=== PATIENT | female | born 1960 | race Caucasian/White ===

== ENCOUNTER → 2018-05-26 | Outpatient (CLI) | payer BC ==
--- NOTE | 2018-05-26 16:39 | MR ---
EXAMINATION TYPE: MR knee RT wo con DATE OF EXAM: 05/26/2018 COMPARISON: None HISTORY: Right knee pain TECHNIQUE: Multiplanar, multisequence imaging of the right knee is performed without IV contrast. FINDINGS: MEDIAL MENISCUS: There is a radial tear of the free edge of the posterior horn of the medial meniscus . LATERAL MENISCUS: Anterior and posterior horns are intact without tear. There is slight increased sig nal of the posterior horn of the lateral meniscus particularly as it extends into the posterior root suggestive of myxoid degeneration CRUCIATE LIGAMENTS: The anterior and posterior cruciate ligaments are intact and unremarkable. COLLATERAL LIGAMENTS: The medial collateral ligament and lateral collateral ligament complex are inta ct and unremarkable. EXTENSOR MECHANISM: Visualized quadriceps and patellar tendons are intact. EFFUSION: No significant suprapatellar joint effusion. POPLITEAL CYST: No popliteal/webb cyst. CARTILAGE: There is a focal full-thickness cartilaginous defect of the medial patellar facet measurin g 7 mm with corresponding fissure of the trochlea at its medial facet. There is a 6 mm partial-thickn ess defect of the weightbearing surface of the lateral femoral condyle with overall signal heterogene ity of the lateral femoral condylar cartilage. Mild signal heterogeneity is seen of the medial compar tment with no focal partial-thickness or full-thickness defect. BONE MARROW SIGNAL: No focal abnormal marrow signal is appreciated. OTHER: There is an encapsulated area of fat within the inferior margin of Hoffa's fat pad with surrou nding PD hyperintensity and T1 hypointensity indicating fluid. This could be related to prior trauma and encapsulated fat necrosis although etiology is uncertain. IMPRESSION: 1. Radial tear of the free edge of the posterior horn of the medial meniscus. 2. 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 3. Tricompartmental chondromalacia with 6 mm partial-thickness defect of the lateral femoral condyle and 7 mm full-thickness defect of the medial facet of the patella with corresponding medial facet fis sure of the trochlear cartilage. 4. Encapsulated area of fat within Hoffa's fat pad with surrounding fluid. Although etiology is uncer tain encapsulated fat necrosis is of primary diagnostic consideration.
== END | disposition home or self-care (01) ==
LOC: RADMRIMAIN 13:27
PROVIDERS: ATTEND Orthopaedic Surgery
DX: S83.241A Other tear of medial meniscus, current injury, right knee, initial encounter (principal); M22.41 Chondromalacia patellae, right knee

== ENCOUNTER → 2018-06-22 | Outpatient (CLI) | payer BC ==
[2018-06-22 12:02] LABS: Basophils % (A) 1 %; Eosinophils # (A) 0.1 k/uL (0-0.7); Eosinophils % (A) 2 %; HCT 45.4 % (34.0-46.0); HGB 15.1 gm/dL (11.4-16.0); Lymphocytes # (A) 1.9 k/uL (1.0-4.8); Lymphocytes % (A) 30 %; MCH 30.1 pg (25.0-35.0); MCHC 33.3 g/dL (31.0-37.0); MCV 90.4 fL (80.0-100.0); Mean Platelet Volume 6.4; Monocytes # (A) 0.4 k/uL (0-1.0); Monocytes % (A) 6 %; Neutrophils # (A) 3.7 k/uL (1.3-7.7); Neutrophils % (A) 59 %; Platelet Count 292 k/uL (150-450); RBC 5.02 m/uL (3.80-5.40); RDW 12.3 % (11.5-15.5); WBC 6.3 k/uL (3.8-10.6)
[2018-06-22 12:15] LABS: Potassium 5.3 mmol/L (3.5-5.1)
== END ==
LOC: LABPAT 10:50
PROVIDERS: ATTEND Orthopaedic Surgery
DX: Z01.818 Encounter for other preprocedural examination (principal); Z01.812 Encounter for preprocedural laboratory examination; M23.91 Unspecified internal derangement of right knee
CPT/HCPCS: 36415; 80051; 85025; 93005

== ENCOUNTER → 2018-07-29 | Outpatient (CLI) | payer BC ==
[2018-07-29 16:39] LABS: Basophils % (A) 0 %; Eosinophils # (A) 0.1 k/uL (0-0.7); Eosinophils % (A) 1 %; HCT 44.8 % (34.0-46.0); HGB 14.6 gm/dL (11.4-16.0); Lymphocytes # (A) 2.1 k/uL (1.0-4.8); Lymphocytes % (A) 21 %; MCH 30.3 pg (25.0-35.0); MCHC 32.6 g/dL (31.0-37.0); MCV 92.9 fL (80.0-100.0); Mean Platelet Volume 6.7; Monocytes # (A) 0.4 k/uL (0-1.0); Monocytes % (A) 4 %; Neutrophils % (A) 71 %; Platelet Count 281 k/uL (150-450); RBC 4.82 m/uL (3.80-5.40); RDW 12.4 % (11.5-15.5); WBC 9.9 k/uL (3.8-10.6)
[2018-07-29 17:06] LABS: Potassium 4.9 mmol/L (3.5-5.1)
== END ==
LOC: LABPAT 15:50
PROVIDERS: ATTEND Orthopaedic Surgery
DX: Z01.812 Encounter for preprocedural laboratory examination (principal); M23.91 Unspecified internal derangement of right knee
CPT/HCPCS: 36415; 80051; 85025

== ENCOUNTER 2018-08-04 13:01 | Day surgery (SDC) | payer BC ==
[2018-08-03 11:51] VITALS: BMI 23.0
--- NOTE | 2018-08-03 16:28 | HP ---
HISTORY AND PHYSICAL DATE OF SURGERY: 08/04/2018 Kim Abraham is a 57-year-old patient seen with progressive right knee pain. We discussed treatment options. She elected to proceed with arthroscopy. Consent obtained. PAST MEDICAL HISTORY: Depression. PAST SURGICAL HISTORY: 1. Cervical fusion. 2. Acoustic neuroma excision. DAILY MEDICATIONS: Estraderm. ALLERGIES: NONE. SOCIAL HISTORY: She denies current tobacco use. PHYSICAL EVALUATION OF THE RIGHT KNEE: Range of motion is 0 to 130 degrees. There is a mild effusion present. There is tenderness along the medial joint line, a positive medial Shon's. Crepitus, medial and patellofemoral compartments. Ligaments are stable. Hip rotation without pain. Distal neurovascular exam is intact. RADIOGRAPHS: Right knee radiographs revealed mild osteoarthritis. Right knee MRI revealed medial meniscal tear. IMPRESSION: Internal derangement of right knee with medial meniscal tear. PLAN: Right knee arthroscopy with partial meniscectomy and debridement. MMODL / IJN: [id number] /
[~2018-08-04 13:01] MED LIST: DEXAMETHASONE SOD PHOSPHATE 10 MG/ML 1 ML VIAL IV ONE; HYDROmorphone 0.5 MG/0.5 ML SYRINGE IVP PRN; LACTATED RINGERS 1,000 ML IV SCH; LIDOCAINE 1% 20 ML VIAL (10MG/ML) FOR IV START INTRADERMA PRN; MIDAZOLAM (PF) 2 MG/2 ML VIAL IV PRN; ONDANSETRON 4 MG/2 ML VIAL IVP ONE; SCOPOLAMINE 1.5MG/72HR PATCH TRANSDERM ONE; ceFAZolin 1,000 MG in DEXTROSE/WATER 1 50ML.BAG IVPB ONE
[2018-08-04 13:18] VITALS: TEMP 98.5
[2018-08-04] MEDS ORDERED: LIDOCAINE 1% INJ 10MG/ML (20 ML MDV) ONE (15:19)
[2018-08-04] MEDS ORDERED: MIDAZOLAM 2 MG/2 ML VIAL ONE (15:19)
[2018-08-04] MEDS ORDERED: fentaNYL (PF) 50 MCG/ML 2 ML AMP ONE (15:19)
[2018-08-04] MEDS ORDERED: KETOROLAC 30 MG/ML 1 ML VIAL ONE (15:19)
[2018-08-04] MEDS ORDERED: PROPOFOL 10 MG/ML 20 ML VIAL IV ONE (15:19)
[2018-08-04] MEDS ORDERED: BUPIVACAIN-EPI 0.25%-1:200,000 30 ML VIAL INTRAARTIC ONE (15:49)
--- NOTE | 2018-08-04 16:08 | P.OP ---
Date of Procedure: 08/04/18 Preoperative Diagnosis: Internal derangement right knee Postoperative Diagnosis: 1. Tear medial meniscus right knee 2. Grade 3 chondromalacia medial femoral condyle right knee 3. Reactive synovitis medial, lateral and suprapatellar compartments right knee Procedure(s) Performed: 1. Arthroscopic partial medial meniscectomy right knee 2. Arthroscopic chondroplasty medial femoral condyle right knee 3. Arthroscopic partial synovectomy medial, lateral and suprapatellar compartments right knee Anesthesia: GETA, local Surgeon: Mina Casey Estimated Blood Loss (ml): 3 Pathology: none sent Condition: stable Disposition: PACU Indications for Procedure: 57-year-old patient seen with progressive right knee pain. We discussed treatment options, she elected to proceed with arthroscopy. Operative Findings: See description of procedure Description of Procedure: Patient was taken to the operative suite. Patient underwent a general anesthetic by the department of anesthesia. Patient was given preoperative antibiotics. The right lower extremity was placed in a well-padded arthroscopic leg rios. The right leg was prepped and draped in the normal sterile orthopedic fashion. A lateral parapatellar and suprapatellar incision was made. Trochars were inserted. Arthroscopy was initiated. Suprapatellar pouch veal diffuse thick reactive synovitis. The patellofemoral joint appeared grossly. There grade 1 chondromalacia with no osteochondral tears present. The scope was guided into the medial gutter. No loose bodies or plica were identified. The scope was then guided into the medial compartment. A medial parapatellar incision was made. Trocar inserted followed by probe. There was a radial tear posterior horn medial meniscus. Her grade 3 chondromalacia changes of the medial femoral condyle with diffuse osteochondral tears present. There was reactive synovitis anteriorly. I performed a partial medial meniscectomy down to stable tissue. I performed a chondroplasty of the medial femoral condyle down to stable tissue. I performed a partial synovectomy decompressing the reactive synovitis. The residual meniscus was stable. The residual osteochondral surface was stable. There was good decompression synovitis. Scope and probe were then guided into the intercondylar notch. Cruciates were identified, probed and found to be stable. The scope and probe were then guided into lateral compartment. Lateral meniscus was probed and found to be stable. There was no significant chondromalacia present. There was some reactive synovitis anteriorly. I performed a partial synovectomy decompressing synovitis. The scope was in guided back into the suprapatellar compartment. I introduced a motorized shaver into the super patellar compartment. I performed a partial synovectomy decompressing reactive synovitis. The shaver was removed. There appeared be no residual debris. Instruments were now removed from the joint. The joint was infiltrated with .25 % Marcaine. Steri-Strips were applied to the portal sites. Sterile dressings were applied. The patient was placed into a [facility] hose. No tourniquet was utilized. The patient was awakened, transferred to a bed and taken to recovery stable satisfactory condition.
[2018-08-04] MEDS ORDERED: traMADol 50 MG TAB PO ONE (17:21)
[2018-08-04 17:38] VITALS: BP 135/79; PULSE 83; RESP 18
== END 2018-08-04 18:00 | disposition home or self-care (01) ==
LOC: OR 13:01
PROVIDERS: ATTEND Orthopaedic Surgery
DX: S83.241A Other tear of medial meniscus, current injury, right knee, initial encounter (principal); X58.XXXA Exposure to other specified factors, initial encounter; M94.261 Chondromalacia, right knee; M65.861 Other synovitis and tenosynovitis, right lower leg; M17.11 Unilateral primary osteoarthritis, right knee; F32.9 Major depressive disorder, single episode, unspecified; Z79.890 Hormone replacement therapy; Z98.1 Arthrodesis status
CPT/HCPCS: 29881; J2250; J1100; J2405; J2001; J3010; J1885; J0690; J2704; J1170

== ENCOUNTER 2020-07-19 23:02 | Observation (INO) | payer BC ==
[2020-07-19] MEDS ORDERED: SODIUM CHLORIDE 0.9% 1,000 ML IV STA (23:34)
[2020-07-19] MEDS ORDERED: LABETALOL 5 MG/ML VIAL MDV IVP STA (23:35)
--- NOTE | 2020-07-19 23:45 | ED ---
Arrhythmia/Palpitations HPI - General Chief Complaint: Arrhythmia/Palpitations Stated Complaint: Palpitations, high bp Time Seen by Provider: 07/19/20 23:15 Source: patient, RN notes reviewed, old records reviewed Mode of arrival: wheelchair Limitations: no limitations - History of Present Illness Initial Comments: This is a 59-year-old female presented for evaluation, patient presents for recurrent right ration of elevated blood pressure, elevated heart rate. Patient has had symptoms for about 10 months now. Up to 10 months they have been episodic. Last month she has been thoroughly evaluated by her primary care doctor still has 2 days ago had an inpatient visits [facility]. Patient presents for increased heart rate dizziness recurrent today. Increased blood pressure and anxiety MD Complaint: rapid heart beat, "heart racing", palpitations -: month(s) Context: occurred during rest, occurred during exertion Arrhythmia History: SVT Associated Symptoms: shortness of breath, anxiety, cough, feeling of impending doom - Related Data Previous Rx's Medication Instructions Recorded traMADol HCl [Ultram] 50 mg PO Q6H PRN #21 tab 08/04/18 Allergies Allergy/AdvReac Type Severity Reaction Status Date / Time morphine Allergy Unknown Verified 07/19/20 23:10 acetaminophen [From Vicodin] AdvReac Hallucinati Verified 07/19/20 23:09 ons hydrocodone bitartrate AdvReac Hallucinati Verified 07/19/20 23:09 [From Vicodin] ons Review of Systems ROS Statement: Those systems with pertinent positive or pertinent negative responses have been documented in the HPI. ROS Other: All systems not noted in ROS Statement are negative. Past Medical History Past Medical History: Osteoarthritis (OA) Additional Past Medical History / Comment(s): Has trouble with balance. History of Any Multi-Drug Resistant Organisms: None Reported Past Surgical History: Back Surgery, Hysterectomy, Joint Replacement Additional Past Surgical History / Comment(s): Cervical fusion in 1999, Brain (Acoustic Neuroma) in 2009, eye surgery as a child. Past Anesthesia/Blood Transfusion Reactions: Postoperative Nausea & Vomiting (PONV) Past Psychological History: No Psychological Hx Reported Smoking Status: Former smoker Past Alcohol Use History: Occasional Past Drug Use History: None Reported - Past Family History Mother Family Medical History: Unable to Obtain Additional Family Medical History / Comment(s): adopted. General Exam Limitations: no limitations General appearance: alert, in no apparent distress, anxious Head exam: Present: atraumatic, normocephalic, normal inspection Eye exam: Present: normal appearance, PERRL, EOMI. Absent: scleral icterus, conjunctival injection, periorbital swelling ENT exam: Present: normal exam, mucous membranes moist Neck exam: Present: normal inspection. Absent: tenderness, meningismus, lymphadenopathy Respiratory exam: Present: wheezes. Absent: respiratory distress, rales, rhonchi, stridor Cardiovascular Exam: Present: normal rhythm, tachycardia, normal heart sounds. Absent: systolic murmur, diastolic murmur, rubs, gallop, clicks GI/Abdominal exam: Present: soft, normal bowel sounds. Absent: distended, tenderness, guarding, rebound, rigid Extremities exam: Present: normal inspection, full ROM, normal capillary refill. Absent: tenderness, pedal edema, joint swelling, calf tenderness Back exam: Present: normal inspection Neurological exam: Present: alert, oriented X3, CN II-XII intact Psychiatric exam: Present: normal affect, normal mood Skin exam: Present: warm, dry, intact, normal color. Absent: rash Course Vital Signs 07/19/20 07/19/20 07/20/20 23:05 23:40 00:03 Temperature 98.4 F Pulse Rate 129 H 97 Pulse Rate [ 122 H Pulse Oximetery ] Respiratory 20 Rate Blood Pressure 183/81 146/80 O2 Sat by Pulse 97 98 Oximetry 07/20/20 07/20/20 00:33 01:00 Temperature Pulse Rate 97 90 Pulse Rate [ Pulse Oximetery ] Respiratory 16 Rate Blood Pressure 138/81 124/84 O2 Sat by Pulse Oximetry - Reevaluation(s) Reevaluation #1: 07/20/20 02:08 Medical record is reviewed Reevaluation #2: 07/20/20 02:08 Patient does have improvement with medication here in the ER, blood pressure control Reevaluation #3: 07/20/20 02:09 Patient has no current chest pain - Consultations Consultation #1: Spoke with PMH were agreeable with the patient EKG Findings - EKG Comments: EKG Findings:: EKG shows sinus tachycardia rate 120 GA 154 QRS 76 QTc 477 Medical Decision Making - Medical Decision Making 59 female DF for evaluation patient is increased anxiety palpitations which are present here in the ER. Patient had recent CT of chest which was negative but has persistent symptoms or shortness of breath despite steroids and antibiotics symptoms are progressively worsened. Patient will be admitted for cardiology to evaluate - Lab Data Result diagrams: 07/19/20 23:42 07/19/20 23:42 Lab Results 07/19/20 07/19/20 07/19/20 Range/Units 23:42 23:42 23:42 WBC 16.2 H (3.8-10.6) k/uL RBC 5.18 (3.80-5.40) m/uL Hgb 15.4 (11.4-16.0) gm/dL Hct 47.6 H (34.0-46.0) % MCV 91.8 (80.0-100.0) fL MCH 29.7 (25.0-35.0) pg MCHC 32.3 (31.0-37.0) g/dL RDW 12.7 (11.5-15.5) % Plt Count 314 (150-450) k/uL MPV 7.0 Neutrophils % 92 % Lymphocytes % 5 % Monocytes % 2 % Eosinophils % 0 % Basophils % 0 % Neutrophils # 14.9 H (1.3-7.7) k/uL Lymphocytes # 0.8 L (1.0-4.8) k/uL Monocytes # 0.4 (0-1.0) k/uL Eosinophils # 0.0 (0-0.7) k/uL Basophils # 0.0 (0-0.2) k/uL PT 9.7 (9.0-12.0) sec INR 0.9 (<1.2) APTT 21.5 L (22.0-30.0) sec D-Dimer (<0.60) mg/L FEU Sodium (137-145) mmol/L Potassium (3.5-5.1) mmol/L Chloride (98-107) mmol/L Carbon Dioxide (22-30) mmol/L Anion Gap mmol/L BUN (7-17) mg/dL Creatinine (0.52-1.04) mg/dL Est GFR (CKD-EPI)AfAm (>60 ml/min/1.73 sqM) Est GFR (CKD-EPI)NonAf (>60 ml/min/1.73 sqM) Glucose (74-99) mg/dL Plasma Lactic Acid Uriel (0.7-2.0) mmol/L Calcium (8.4-10.2) mg/dL Phosphorus (2.5-4.5) mg/dL Magnesium (1.6-2.3) mg/dL Total Bilirubin (0.2-1.3) mg/dL AST (14-36) U/L ALT (4-34) U/L Alkaline Phosphatase (38-126) U/L Creatine Kinase (30-135) U/L Troponin I (0.000-0.034) ng/mL C-Reactive Protein (<10.0) mg/L NT-Pro-B Natriuret Pep pg/mL Total Protein (6.3-8.2) g/dL Albumin (3.5-5.0) g/dL TSH (0.465-4.680) mIU/L Urine Color Light Yellow Urine Appearance Clear (Clear) Urine pH 6.5 (5.0-8.0) Ur Specific [place] 1.009 (1.001-1.035) Urine Protein Negative (Negative) Urine Glucose (UA) Negative (Negative) Urine Ketones Negative (Negative) Urine Blood Negative (Negative) Urine Nitrite Negative (Negative) Urine Bilirubin Negative (Negative) Urine Urobilinogen <2.0 (<2.0) mg/dL Ur Leukocyte Esterase Negative (Negative) 07/19/20 07/19/20 07/19/20 Range/Units 23:42 23:42 23:42 WBC (3.8-10.6) k/uL RBC (3.80-5.40) m/uL Hgb (11.4-16.0) gm/dL Hct (34.0-46.0) % MCV (80.0-100.0) fL MCH (25.0-35.0) pg MCHC (31.0-37.0) g/dL RDW (11.5-15.5) % Plt Count (150-450) k/uL MPV Neutrophils % % Lymphocytes % % Monocytes % % Eosinophils % % Basophils % % Neutrophils # (1.3-7.7) k/uL Lymphocytes # (1.0-4.8) k/uL Monocytes # (0-1.0) k/uL Eosinophils # (0-0.7) k/uL Basophils # (0-0.2) k/uL PT (9.0-12.0) sec INR (<1.2) APTT (22.0-30.0) sec D-Dimer (<0.60) mg/L FEU Sodium 140 (137-145) mmol/L Potassium 4.1 (3.5-5.1) mmol/L Chloride 106 (98-107) mmol/L Carbon Dioxide 23 (22-30) mmol/L Anion Gap 11 mmol/L BUN 16 (7-17) mg/dL Creatinine 0.74 (0.52-1.04) mg/dL Est GFR (CKD-EPI)AfAm >90 (>60 ml/min/1.73 sqM) Est GFR (CKD-EPI)NonAf >90 (>60 ml/min/1.73 sqM) Glucose 141 H (74-99) mg/dL Plasma Lactic Acid Uriel 1.7 (0.7-2.0) mmol/L Calcium 9.6 (8.4-10.2) mg/dL Phosphorus 4.2 (2.5-4.5) mg/dL Magnesium 1.9 (1.6-2.3) mg/dL Total Bilirubin 0.5 (0.2-1.3) mg/dL AST 20 (14-36) U/L ALT 21 (4-34) U/L Alkaline Phosphatase 72 (38-126) U/L Creatine Kinase 41 (30-135) U/L Troponin I <0.012 (0.000-0.034) ng/mL C-Reactive Protein (<10.0) mg/L NT-Pro-B Natriuret Pep pg/mL Total Protein 7.9 (6.3-8.2) g/dL Albumin 4.8 (3.5-5.0) g/dL TSH (0.465-4.680) mIU/L Urine Color Urine Appearance (Clear) Urine pH (5.0-8.0) Ur Specific [place] (1.001-1.035) Urine Protein (Negative) Urine Glucose (UA) (Negative) Urine Ketones (Negative) Urine Blood (Negative) Urine Nitrite (Negative) Urine Bilirubin (Negative) Urine Urobilinogen (<2.0) mg/dL Ur Leukocyte Esterase (Negative) 07/19/20 07/19/20 07/19/20 Range/Units 23:42 23:42 23:42 WBC (3.8-10.6) k/uL RBC (3.80-5.40) m/uL Hgb (11.4-16.0) gm/dL Hct (34.0-46.0) % MCV (80.0-100.0) fL MCH (25.0-35.0) pg MCHC (31.0-37.0) g/dL RDW (11.5-15.5) % Plt Count (150-450) k/uL MPV Neutrophils % % Lymphocytes % % Monocytes % % Eosinophils % % Basophils % % Neutrophils # (1.3-7.7) k/uL Lymphocytes # (1.0-4.8) k/uL Monocytes # (0-1.0) k/uL Eosinophils # (0-0.7) k/uL Basophils # (0-0.2) k/uL PT (9.0-12.0) sec INR (<1.2) APTT (22.0-30.0) sec D-Dimer 0.24 (<0.60) mg/L FEU Sodium (137-145) mmol/L Potassium (3.5-5.1) mmol/L Chloride (98-107) mmol/L Carbon Dioxide (22-30) mmol/L Anion Gap mmol/L BUN (7-17) mg/dL Creatinine (0.52-1.04) mg/dL Est GFR (CKD-EPI)AfAm (>60 ml/min/1.73 sqM) Est GFR (CKD-EPI)NonAf (>60 ml/min/1.73 sqM) Glucose (74-99) mg/dL Plasma Lactic Acid Uriel (0.7-2.0) mmol/L Calcium (8.4-10.2) mg/dL Phosphorus (2.5-4.5) mg/dL Magnesium (1.6-2.3) mg/dL Total Bilirubin (0.2-1.3) mg/dL AST (14-36) U/L ALT (4-34) U/L Alkaline Phosphatase (38-126) U/L Creatine Kinase (30-135) U/L Troponin I (0.000-0.034) ng/mL C-Reactive Protein <5.0 (<10.0) mg/L NT-Pro-B Natriuret Pep 104 pg/mL Total Protein (6.3-8.2) g/dL Albumin (3.5-5.0) g/dL TSH 0.250 L (0.465-4.680) mIU/L Urine Color Urine Appearance (Clear) Urine pH (5.0-8.0) Ur Specific [place] (1.001-1.035) Urine Protein (Negative) Urine Glucose (UA) (Negative) Urine Ketones (Negative) Urine Blood (Negative) Urine Nitrite (Negative) Urine Bilirubin (Negative) Urine Urobilinogen (<2.0) mg/dL Ur Leukocyte Esterase (Negative) Disposition Clinical Impression: Tachycardia, Palpitations Disposition: ADMITTED IP TO THIS HOSP Condition: Good Is patient prescribed a controlled substance at d/c from ED?: No
[2020-07-20 00:04] LABS: Basophils % (A) 0 %; Eosinophils % (A) 0 %; HCT 47.6 % (34.0-46.0); HGB 15.4 gm/dL (11.4-16.0); Lymphocytes # (A) 0.8 k/uL (1.0-4.8); Lymphocytes % (A) 5 %; MCH 29.7 pg (25.0-35.0); MCHC 32.3 g/dL (31.0-37.0); MCV 91.8 fL (80.0-100.0); Monocytes # (A) 0.4 k/uL (0-1.0); Monocytes % (A) 2 %; Neutrophils # (A) 14.9 k/uL (1.3-7.7); Neutrophils % (A) 92 %; Platelet Count 314 k/uL (150-450); RBC 5.18 m/uL (3.80-5.40); RDW 12.7 % (11.5-15.5); WBC 16.2 k/uL (3.8-10.6)
[2020-07-20 00:12] LABS: Appearance,Urine Clear (Clear); Bilirubin,Urine Negative (Negative); Blood,Urine Negative (Negative); Color,Urine Light Yellow; Glucose,Urine (UA) Negative (Negative); Ketones,Urine Negative (Negative); Leukocyte Esterase,Urine Negative (Negative); Nitrite,Urine Negative (Negative); PH, Urine 6.5 (5.0-8.0); Protein,Urine Negative (Negative); Specific Gravity,Urine 1.009 (1.001-1.035); Urobilinogen,Urine <2.0 mg/dL (<2.0)
[2020-07-20 00:15] LABS: ALT 21 U/L (4-34); AST 20 U/L (14-36); African American GFR (CKD) >90 (>60 ml/min/1.73 sqM); Albumin 4.8 g/dL (3.5-5.0); Alkaline Phosphatase 72 U/L (38-126); Anion Gap 11 mmol/L; Blood Urea Nitrogen 16 mg/dL (7-17); Calcium 9.6 mg/dL (8.4-10.2); Carbon Dioxide 23 mmol/L (22-30); Chloride 106 mmol/L (98-107); Creatine Kinase 41 U/L (30-135); Glucose 141 mg/dL (74-99); INR 0.9 (<1.2); Magnesium 1.9 mg/dL (1.6-2.3); Non-African American GFR(CKD) >90 (>60 ml/min/1.73 sqM); Phosphorus 4.2 mg/dL (2.5-4.5); Potassium 4.1 mmol/L (3.5-5.1); Prothrombin Time 9.7 sec (9.0-12.0); Sodium 140 mmol/L (137-145); Total Bilirubin 0.5 mg/dL (0.2-1.3); Total Protein 7.9 g/dL (6.3-8.2)
[2020-07-20 00:18] LABS: C Reactive Protein <5.0 mg/L (<10.0)
[2020-07-20 00:20] LABS: Partial Thromboplastin Time 21.5 sec (22.0-30.0)
[2020-07-20] MEDS ORDERED: NITROGLYCERIN SL TABS 0.4 MG TAB SUBLINGUAL PRN (01:55)
[2020-07-20] MEDS: SODIUM CHLORIDE 0.9% 1,000 ML IV SCH ×3 (02:26→21:25)
[2020-07-20 02:50] LABS: T4, Free (Free Thyroxine) 1.24 ng/dL (0.78-2.19)
--- NOTE | 2020-07-20 08:35 | XR ---
EXAMINATION TYPE: XR chest 2V DATE OF EXAM: 07/20/2020 COMPARISON: NONE TECHNIQUE: PA and lateral views submitted. HISTORY: Cough FINDINGS: The lungs are clear and there is no pneumothorax, pleural effusion, or focal pneumonia. Heart size normal. No overt failure. Biapical pleural thickening. IMPRESSION: 1. No acute process.
--- NOTE | 2020-07-20 09:41 | P.CRDCN ---
History of Present Illness Consult date: 07/20/20 History of present illness: CHIEF COMPLAINT: Elevated blood pressure and heart rate HISTORY OF PRESENT ILLNESS: This is a 59-year-old female with a past medical history significant for asthma and bronchitis. Patient does not follow with a throw out clerk. We have been asked to see the patient in consultation for elevated blood pressure and tachycardia. Patient states she has had a cough since August 2019. She states it has gotten worse over the past month. She states she has been evaluated by her primary care physician and has been on antibiotics. She is currently prescribed steroids by her PCP. She states that she went to [facility] on Wednesday secondary to her cough. A chest x-ray was completed at that time. She states she was discharged home. Patient reports feeling palpitations for the last 3 days. She continues to report a nonproductive cough. She denies chest pain or pressure. Denies dizziness or numbness. She states she has been checking her blood pressure at home and it has been elevated. Blood pressure this morning is 164/94. Heart rate is in 80s. DIAGNOSTICS: EKG reveals sinus tachycardia with no signs of acute ischemia Laboratory data: WBC 16.2. Hemoglobin 15.4. Platelet count 314. D-dimer 0.24. Sodium 140. Potassium 4.1. BUN 16. Creatinine 0.74. Lactic acid 1.7. Troponin negative 3. TSH 0.250. Free T4 1 0.24. Current home cardiac medications include none REVIEW OF SYSTEMS: At the time of my exam: CONSTITUTIONAL: Denies fever or chills. HEENT: Denies blurred vision, vision changes, or eye pain. Denies hemoptysis CARDIOVASCULAR: Denies chest pain, orthopnea, PND or palpitations RESPIRATORY: No shortness of breath. GASTROINTESTINAL: Denies abdominal pain. Denies nausea or vomiting. HEMATOLOGIC: Denies bleeding disorders. GENITOURINARY: Denies any blood in urine. SKIN: Denies pruitis. Denies rash. PHYSICAL EXAM: VITAL SIGNS: Reviewed. GENERAL: Well-developed in no acute distress. HEENT: Head is normocephalic. Pupils are equal, round. Sclerae anicteric. Mucous membranes of the mouth are moist. Neck supple. No JVD or thyromegaly LUNGS: Respirations even and unlabored. Lungs essentially clear to auscultation bilaterally. HEART: Regular rate and rhythm. S1 and S2 heard. ABDOMEN: Soft. Nondistended. Nontender. EXTREMITIES: Normal range of motion. No clubbing or cyanosis. Peripheral pulses intact. No lower extremity edema NEUROLOGIC: Awake and alert. Oriented x 3. ASSESSMENT: Chronic cough, since August 2019 Palpitations Sinus tachycardia History of asthma and bronchitis Leukocytosis, suspect steroid-induced PLAN: Continue telemetry monitoring Obtain 2-D echo to assess cardiac structure and function Continue to monitor blood pressure. Patient encouraged to keep a log of her blood pressures at home post discharge Patient may be discharged home this afternoon pending echo results Nurse practitioner note has been reviewed by physician. Signing provider agrees with the documented findings, assessment, and plan of care. Past Medical History Past Medical History: Osteoarthritis (OA) Additional Past Medical History / Comment(s): Has trouble with balance from inner ear issues, macular degenerative disease, legally blind in left eye, OA, L rotator cuff, cervical fusion &7, benigh brain tumor 2009, hysterectomy History of Any Multi-Drug Resistant Organisms: None Reported Past Surgical History: Back Surgery, Hysterectomy, Joint Replacement Additional Past Surgical History / Comment(s): Cervical fusion in 1999, Brain (Acoustic Neuroma) in 2009, eye surgery as a child. Past Anesthesia/Blood Transfusion Reactions: Postoperative Nausea & Vomiting (PONV) Past Psychological History: No Psychological Hx Reported Smoking Status: Former smoker Past Alcohol Use History: Occasional Additional Past Alcohol Use History / Comment(s): Smoked 1 PPD for 10 yrs. Quit in 1991. Past Drug Use History: None Reported - Past Family History Mother Family Medical History: Unable to Obtain Additional Family Medical History / Comment(s): adopted. Medications and Allergies Home Medications Medication Instructions Recorded Confirmed Type Albuterol Sulfate [Albuterol 2 puff PO Q6H PRN 07/20/20 07/20/20 History Sulfate Hfa] Fluticasone/Salmeterol [Advair 1 puff INHALATION RT-BID 07/20/20 07/20/20 History 250-50 Diskus] predniSONE [Deltasone] See Taper PO DIRECTED 07/20/20 07/20/20 History Allergies Allergy/AdvReac Type Severity Reaction Status Date / Time morphine Allergy Unknown Verified 07/20/20 09:05 acetaminophen [From Vicodin] AdvReac Hallucinati Verified 07/20/20 09:05 ons hydrocodone bitartrate AdvReac Hallucinati Verified 07/20/20 09:05 [From Vicodin] ons Physical Exam Vitals: Vital Signs Temp Pulse Pulse Resp BP BP Pulse Ox 07/20/20 08:26 97.5 F L 78 20 164/94 07/20/20 03:00 16 07/20/20 02:38 98.0 F 84 16 150/86 98 07/20/20 02:24 87 16 145/88 100 07/20/20 01:00 90 16 124/84 07/20/20 00:33 97 138/81 07/20/20 00:03 97 146/80 98 07/19/20 23:40 122 H 07/19/20 23:05 98.4 F 129 H 20 183/81 97 Intake and Output 07/19/20 07/20/20 07/20/20 22:59 06:59 14:59 Other: Weight 72.575 kg Results 07/19/20 23:42 07/19/20 23:42 Cardiac Enzymes 07/19/20 07/19/20 07/20/20 Range/Units 23:42 23:42 02:30 AST 20 (14-36) U/L Troponin I <0.012 <0.012 (0.000-0.034) ng/mL 07/20/20 Range/Units 05:33 AST (14-36) U/L Troponin I <0.012 (0.000-0.034) ng/mL Coagulation 07/19/20 Range/Units 23:42 PT 9.7 (9.0-12.0) sec APTT 21.5 L (22.0-30.0) sec CBC 07/19/20 Range/Units 23:42 WBC 16.2 H (3.8-10.6) k/uL RBC 5.18 (3.80-5.40) m/uL Hgb 15.4 (11.4-16.0) gm/dL Hct 47.6 H (34.0-46.0) % Plt Count 314 (150-450) k/uL Comprehensive Metabolic Panel 07/19/20 Range/Units 23:42 Sodium 140 (137-145) mmol/L Potassium 4.1 (3.5-5.1) mmol/L Chloride 106 (98-107) mmol/L Carbon Dioxide 23 (22-30) mmol/L BUN 16 (7-17) mg/dL Creatinine 0.74 (0.52-1.04) mg/dL Glucose 141 H (74-99) mg/dL Calcium 9.6 (8.4-10.2) mg/dL AST 20 (14-36) U/L ALT 21 (4-34) U/L Alkaline Phosphatase 72 (38-126) U/L Total Protein 7.9 (6.3-8.2) g/dL Albumin 4.8 (3.5-5.0) g/dL Current Medications Generic Name Dose Route Start Last Admin Trade Name Freq PRN Reason Stop Dose Admin Sodium Chloride 1,000 mls @ 100 mls/hr 07/20/20 02:00 07/20/20 02:26 Saline 0.9% IV Not Given .Q10H JENNA Nitroglycerin 0.4 mg 07/20/20 01:55 Nitroglycerin Sl Tabs 0.4 Mg Tab SUBLINGUAL Q5M PRN Chest Pain Intake and Output 07/19/20 07/20/20 07/20/20 22:59 06:59 14:59 Other: Weight 72.575 kg 07/19/20 23:42 07/19/20 23:42
[2020-07-20] MEDS: LORATADINE-PSEUDOEPH 5-120 MG 1 EACH TAB.ER.12H PO SCH ×2 (11:27→21:26)
[2020-07-20] MEDS: predniSONE 10 MG TAB PO SCH (11:27)
--- NOTE | 2020-07-20 11:44 | P.HPIM ---
History of Present Illness H&P Date: 07/20/20 Chief Complaint: Increased heart rate and increased blood pressure Ms. Abraham is a 59-year-old female with a past medical history of osteoarthritis, macular degeneration, legally blind in the left eye, cervical fusion of 6 and 7, benign brain tumor in 2009 coming to the hospital stating that she was having increased heart rate and also that her blood pressure was high. Patient states that for the past 10 months she has been having issues with her breathing. She states that when she takes in a deep breath, she has to cough. She has nonproductive cough. Patient quit smoking 26 years back. She is being evaluated for this by her primary care physician and currently taking steroids. Patient states that she went to [facility] on Wednesday secondary to this cough, she had a chest x-ray and she was discharged home. But since then she has been having palpitations and a nonproductive cough. Patient mentions that she has been checking her blood pressure at home and that it was high and she also recorded her heart rate and was high so she came in for further evaluation. In the ER patient had an EKG showing sinus tachycardia, and a chest x-ray s howing no acute process. Patient had blood work done showing white count of 16.2, hemoglobin 15.4, platelets 314. D-dimer 0.04. Electrolytes showing sodium 140, potassium 4.1, chloride 106, bicarbonate 23, BUN 16, creatinine 0.74. Troponin less than 0.0123. Free T4 1 0.24. UA negative for nitrites and esterase. Review of Systems REVIEW OF SYSTEMS: CONSTITUTIONAL: No fever, no malaise, no fatigue. HEENT: No recent visual problems or hearing problems. Denied any sore throat. CARDIOVASCULAR: As per HPI PULMONARY:no hemoptysis. GASTROINTESTINAL: No abdominal pain, nausea vomiting or diarrhea. NEUROLOGICAL: No headaches, no weakness, no numbness. HEMATOLOGICAL: Denies any bleeding or petechiae. GENITOURINARY: Denies any burning micturition, frequency, or urgency. MUSCULOSKELETAL/RHEUMATOLOGICAL: No joint pain, swelling or deformities. ENDOCRINE: Denies any polyuria or polydipsia. The rest of the 14-point review of systems is negative. Past Medical History Past Medical History: Osteoarthritis (OA) Additional Past Medical History / Comment(s): Has trouble with balance from inner ear issues, macular degenerative disease, legally blind in left eye, OA, L rotator cuff, cervical fusion 6&7, benigh brain tumor 2010, hysterectomy History of Any Multi-Drug Resistant Organisms: None Reported Past Surgical History: Back Surgery, Hysterectomy, Joint Replacement Additional Past Surgical History / Comment(s): Cervical fusion in 1999, Brain (Acoustic Neuroma) in 2009, eye surgery as a child. Past Anesthesia/Blood Transfusion Reactions: Postoperative Nausea & Vomiting (PONV) Past Psychological History: No Psychological Hx Reported Smoking Status: Former smoker Past Alcohol Use History: Occasional Additional Past Alcohol Use History / Comment(s): Smoked 1 PPD for 10 yrs. Quit in 1991. Past Drug Use History: None Reported - Past Family History Mother Family Medical History: Unable to Obtain Additional Family Medical History / Comment(s): adopted. Medications and Allergies Home Medications Medication Instructions Recorded Confirmed Type Albuterol Sulfate [Albuterol 2 puff PO Q6H PRN 07/20/20 07/20/20 History Sulfate Hfa] Fluticasone/Salmeterol [Advair 1 puff INHALATION RT-BID 07/20/20 07/20/20 History 250-50 Diskus] predniSONE [Deltasone] See Taper PO DIRECTED 07/20/20 07/20/20 History Allergies Allergy/AdvReac Type Severity Reaction Status Date / Time morphine Allergy Unknown Verified 07/20/20 09:05 acetaminophen [From Vicodin] AdvReac Hallucinati Verified 07/20/20 09:05 ons hydrocodone bitartrate AdvReac Hallucinati Verified 07/20/20 09:05 [From Vicodin] ons Physical Exam Vitals: Vital Signs Temp Pulse Pulse Resp BP BP Pulse Ox 07/20/20 09:00 78 20 07/20/20 08:26 97.5 F L 78 20 164/94 07/20/20 03:00 16 07/20/20 02:38 98.0 F 84 16 150/86 98 07/20/20 02:24 87 16 145/88 100 07/20/20 01:00 90 16 124/84 07/20/20 00:33 97 138/81 07/20/20 00:03 97 146/80 98 07/19/20 23:40 122 H 07/19/20 23:05 98.4 F 129 H 20 183/81 97 Intake and Output 07/19/20 07/20/20 07/20/20 22:59 06:59 14:59 Other: Voiding Method Toilet Weight 72.575 kg PHYSICAL EXAMINATION: GENERAL: The patient is alert and oriented X3, in any acute distress. Well developed, well nourished. HEENT: Pupils are round and equally reacting to light. EOMI. No scleral icterus. No conjunctival pallor. Normocephalic, atraumatic. No pharyngeal erythema. No thyromegaly. Right conjunctival hemorrhage( status post injection by ophthalmology done couple of days back ) CARDIOVASCULAR: S1 and S2 present. No murmurs, rubs, or gallops. PULMONARY: Chest is clear to auscultation, no wheezing or crackles. ABDOMEN: Soft, nontender. No organomegaly. Normal bowel sounds. MUSCULOSKELETAL: No joint swelling or deformity. EXTREMITIES: No cyanosis, clubbing, or pedal edema. NEUROLOGICAL: No focal neurological deficits on gross exam. SKIN: No rash Results CBC & Chem 7: 07/19/20 23:42 07/19/20 23:42 Labs: Abnormal Lab Results - Last 24 Hours (Table) 07/19/20 07/19/20 07/19/20 Range/Units 23:42 23:42 23:42 WBC 16.2 H (3.8-10.6) k/uL Hct 47.6 H (34.0-46.0) % Neutrophils # 14.9 H (1.3-7.7) k/uL Lymphocytes # 0.8 L (1.0-4.8) k/uL APTT 21.5 L (22.0-30.0) sec Glucose 141 H (74-99) mg/dL TSH (0.465-4.680) mIU/L 07/19/20 Range/Units 23:42 WBC (3.8-10.6) k/uL Hct (34.0-46.0) % Neutrophils # (1.3-7.7) k/uL Lymphocytes # (1.0-4.8) k/uL APTT (22.0-30.0) sec Glucose (74-99) mg/dL TSH 0.250 L (0.465-4.680) mIU/L Thrombosis Risk Factor Assmnt - Choose All That Apply Any of the Below Risk Factors Present?: No Assessment and Plan Assessment: ASSESSMENT Chronic cough Palpitations Leukocytosis- on steroids Macular degeneration Degenerative joint disease Cervical fusion of C6/C7 Benign brain tumor 2010 History of hysterectomy Former smoker PLAN: Patient had an EKG and chest x-ray that are within normal limits. Patient's vitals have been within normal limits since admission. Cardiology has evaluated the patient echocardiogram is currently pending. Pulmonary has been consulted. Patient has been restarted on her home medications. Further recommendations depending on the progress of the patient
--- NOTE | 2020-07-20 12:23 | ECHOF ---
Referral Reason:lv function MEASUREMENTS -------- HEIGHT: 167.6 cm WEIGHT: 72.6 kg BP: RVIDd: 2.5 cm (< 3.3) IVSd: 1.5 cm (0.6 - 1.1) LVIDd: 2.5 cm (3.9 - 5.3) LVPWd: 1.5 cm (0.6 - 1.1) IVSs: 1.9 cm LVIDs: 1.7 cm LVPWs: 1.8 cm Ao Diam: 2.8 cm (2.0 - 3.7) AV Cusp: 1.6 cm (1.5 - 2.6) LA Diam: 2.9 cm (2.7 - 3.8) MV EXCURSION: 12.451 mm (> 18.000) MV EF SLOPE: 74 mm/s (70 - 150) EPSS: 0.5 cm MV E Ruben: 1.04 m/s MV DecT: 199 ms MV A Ruben: 1.04 m/s MV E/A Ratio: 0.99 RAP: 5.00 mmHg RVSP: 16.89 mmHg FINDINGS -------- Sinus rhythm. This was a technically good study. The left ventricular size is normal. There is moderate concentric left ventricular hypertrophy. O verall left ventricular systolic function is normal with, an EF between 55 - 60 %. The right ventricle is normal in size. The left atrial size is normal. The right atrial size is normal. The aortic valve is trileaflet, and appears structurally normal. No aortic stenosis or regurgitation. The mitral valve leaflets are mildly thickened. Mild mitral regurgitation is present. The tricuspid valve appears structurally normal. Mild tricuspid regurgitation present. Right vent ricular systolic pressure is normal at < 35 mmHg. Trace/mild (physiologic) pulmonic regurgitation. The aortic root size is normal. Normal inferior vena cava with normal inspiratory collapse consistent with estimated right atrial pre ssure of 5 mmHg. There is no pericardial effusion. CONCLUSIONS -------- 1. There is moderate concentric left ventricular hypertrophy. 2. Overall left ventricular systolic function is normal with, an EF between 55 - 60 %. 3. The aortic valve is trileaflet, and appears structurally normal. No aortic stenosis or regurgitati on. 4. The mitral valve leaflets are mildly thickened. 5. Mild mitral regurgitation is present. 6. Mild tricuspid regurgitation present. 7. Trace/mild (physiologic) pulmonic regurgitation. 8. There is no pericardial effusion. PEDICAB DRIVER: Roxana Interiano RDCS
--- NOTE | 2020-07-20 12:38 | P.CNPUL ---
History of Present Illness Consult date: 07/20/20 Reason for consult: cough, asthma Chief complaint: Chronic cough History of present illness: This is a 59-year-old female with history of multiple ALLERGIES, known history of hayfever, ALLERGIC rhinitis, known history of degenerative joint disease, remote smoking history, patient has been diagnosed in the past as having bronchial asthma, however has not been very compliant with her asthma medications including albuterol and Advair. Since August of 2019, the patient has been experiencing intermittent episodes of cough wheezing, shortness of breath. Cough is described as dry cough, nonproductive, denies any fever no chills no hemoptysis no chest pain. Patient had minimal smoking history and she quit smoking over 26 years ago. Has been treated by her primary care physician with multiple courses of inhalers, steroids, antibiotics, and nothing seems to help. Describes the cough as triggered by symptoms of ALLERGIC rhinitis, triggered by seasonal changes especially worse in fall and spring, triggered by her talking loud. And sometimes even triggered by inhalers. Patient denies any symptoms of GERD. She does have symptoms of ALLERGIC rhinitis for sure. At any rate patient was admitted, and I was asked to see her on consultation. She had sinus tachycardia when she was seen by cardiology, and he felt that her sinus tachycardia is related to her cough symptoms and asthma symptoms. Patient had a d-dimer of 0.04. Chest x-ray showed no evidence of active disease. Review of Systems CONSTITUTIONAL: Denies weight loss fever or chills. HEENT: No recent visual problems or hearing problems. Denied any sore throat. Patient does have chronic symptoms of ALLERGIC rhinitis. CARDIOVASCULAR: Palpitations. And tachycardia PULMONARY: As noted in HPI. GASTROINTESTINAL: Denies any GI symptoms, denies any symptoms of GERD. NEUROLOGICAL: No headaches, no weakness, no numbness. HEMATOLOGICAL: No clotting bleeding or bruising. GENITOURINARY: No dysuria frequency urgency or hematuria. MUSCULOSKELETAL/RHEUMATOLOGICAL: No joint pain, swelling or deformities. ENDOCRINE: Denies any heat or cold intolerance Past Medical History Past Medical History: Osteoarthritis (OA) Additional Past Medical History / Comment(s): Has trouble with balance from inner ear issues, macular degenerative disease, legally blind in left eye, OA, L rotator cuff, cervical fusion 6&7, benigh brain tumor 2009, hysterectomy History of Any Multi-Drug Resistant Organisms: None Reported Past Surgical History: Back Surgery, Hysterectomy, Joint Replacement Additional Past Surgical History / Comment(s): Cervical fusion in 1999, Brain (Acoustic Neuroma) in 2009, eye surgery as a child. Past Anesthesia/Blood Transfusion Reactions: Postoperative Nausea & Vomiting (PONV) Past Psychological History: No Psychological Hx Reported Smoking Status: Former smoker Past Alcohol Use History: Occasional Additional Past Alcohol Use History / Comment(s): Smoked 1 PPD for 10 yrs. Quit in 1991. Past Drug Use History: None Reported - Past Family History Mother Family Medical History: Unable to Obtain Additional Family Medical History / Comment(s): adopted. Medications and Allergies Home Medications Medication Instructions Recorded Confirmed Type Albuterol Sulfate [Albuterol 2 puff PO Q6H PRN 07/20/20 07/20/20 History Sulfate Hfa] Fluticasone/Salmeterol [Advair 1 puff INHALATION RT-BID 07/20/20 07/20/20 History 250-50 Diskus] predniSONE [Deltasone] See Taper PO DIRECTED 07/20/20 07/20/20 History Allergies Allergy/AdvReac Type Severity Reaction Status Date / Time morphine Allergy Unknown Verified 07/20/20 09:05 acetaminophen [From Vicodin] AdvReac Hallucinati Verified 07/20/20 09:05 ons hydrocodone bitartrate AdvReac Hallucinati Verified 07/20/20 09:05 [From Vicodin] ons Physical Exam Vitals: Vital Signs Temp Pulse Pulse Resp BP BP Pulse Ox 07/20/20 09:00 78 20 07/20/20 08:26 97.5 F L 78 20 164/94 07/20/20 03:00 16 07/20/20 02:38 98.0 F 84 16 150/86 98 07/20/20 02:24 87 16 145/88 100 07/20/20 01:00 90 16 124/84 07/20/20 00:33 97 138/81 07/20/20 00:03 97 146/80 98 07/19/20 23:40 122 H 07/19/20 23:05 98.4 F 129 H 20 183/81 97 Intake and Output 07/19/20 07/20/20 07/20/20 22:59 06:59 14:59 Other: Voiding Method Toilet Weight 72.575 kg Physical Exam: Revealed 59-year-old female in no distress. Head: Atraumatic, normocephalic. HEENT:[Neck is supple.] [No neck masses.] [No thyromegaly.] [No JVD.] Chest: [Clear throughout, no crackles, no rhonchi, minimal wheezing on forced expiratory maneuver only. Cardiac Exam: [Normal S1 and S2, no S3 gallop, no murmur.] Abdomen: [Soft, nontender, no megaly, no rebound, no guarding, normal bowel sounds.] Extremities: [No clubbing, no edema, no cyanosis.] Neurological Exam: [No focal neurologic deficit.] Alert and oriented 3. Psychiatric: Normal mood, affect and normal mental status examination. Skin: No rashes. Results - Laboratory Findings CBC and BMP: 07/19/20 23:42 07/19/20 23:42 PT/INR, D-dimer PT 9.7 sec (9.0-12.0) 07/19/20 23:42 INR 0.9 (<1.2) 07/19/20 23:42 D-Dimer 0.24 mg/L FEU (<0.60) 07/19/20 23:42 Abnormal lab findings: Abnormal Labs 07/19/20 07/19/20 07/19/20 23:42 23:42 23:42 WBC 16.2 H Hct 47.6 H Neutrophils # 14.9 H Lymphocytes # 0.8 L APTT 21.5 L Glucose 141 H TSH 07/19/20 23:42 WBC Hct Neutrophils # Lymphocytes # APTT Glucose TSH 0.250 L - Diagnostic Findings Chest x-ray: image reviewed (As noted in HPI.) Assessment and Plan Assessment: Impression: Chronic cough, suspect cough variant asthma and cough secondary to ALLERGIC rhinitis and postnasal drip. History of macular degeneration. History of multiple environmental ALLERGIES. History of benign brain tumor in 2010. History of hysterectomy. Former smoker. Recommendation: Suggest placing the patient on bronchodilators in the form of albuterol, Symbicort, Singulair, Claritin, and a course of prednisone 30 mg tapered over 21 days. Consider discharging the patient home today, assuming she is cleared by other consultants. And to see me in the office in 2 weeks. Time with Patient: Greater than 30
[2020-07-20 20:56] VITALS: RESP 16
[2020-07-20] MEDS ORDERED: MONTELUKAST 10 MG TAB PO SCH (21:00)
[2020-07-21 07:21] LABS: Basophils % (A) 0 %; Eosinophils # (A) 0.1 k/uL (0-0.7); Eosinophils % (A) 1 %; HCT 43.3 % (34.0-46.0); HGB 14.3 gm/dL (11.4-16.0); Lymphocytes # (A) 2.4 k/uL (1.0-4.8); Lymphocytes % (A) 24 %; MCH 30.2 pg (25.0-35.0); MCHC 32.9 g/dL (31.0-37.0); MCV 91.6 fL (80.0-100.0); Mean Platelet Volume 6.9; Monocytes # (A) 0.5 k/uL (0-1.0); Monocytes % (A) 5 %; Neutrophils # (A) 6.9 k/uL (1.3-7.7); Neutrophils % (A) 69 %; Platelet Count 286 k/uL (150-450); RBC 4.73 m/uL (3.80-5.40); RDW 12.6 % (11.5-15.5)
[2020-07-21 07:46] LABS: African American GFR (CKD) >90 (>60 ml/min/1.73 sqM); Anion Gap 3 mmol/L; Blood Urea Nitrogen 11 mg/dL (7-17); Calcium 8.8 mg/dL (8.4-10.2); Carbon Dioxide 27 mmol/L (22-30); Chloride 109 mmol/L (98-107); Cholesterol 191 mg/dL (<200); Glucose 82 mg/dL (74-99); HDL Cholesterol 72 mg/dL (40-60); LDL Cholesterol,Calculated 107 mg/dL (0-99); Non-African American GFR(CKD) >90 (>60 ml/min/1.73 sqM); Sodium 139 mmol/L (137-145); Triglycerides 60 mg/dL (<150)
[2020-07-21] MEDS: SODIUM CHLORIDE 0.9% 1,000 ML IV SCH (08:28)
[2020-07-21] MEDS: predniSONE 10 MG TAB PO SCH (08:29)
[2020-07-21] MEDS: LORATADINE-PSEUDOEPH 5-120 MG 1 EACH TAB.ER.12H PO SCH (08:29)
[2020-07-21] MEDS ORDERED: ACETAMINOPHEN TAB 325 MG TAB PO PRN (11:10)
[2020-07-21 15:03] VITALS: BP 116/68; PULSE 86; TEMP 98
--- NOTE | 2020-07-21 15:20 | P.DS ---
Providers Date of admission: 07/20/20 01:55 Expected date of discharge: 07/21/20 Attending physician: Rosemary Newberry Consults: 07/20/20 09:56 Consult Physician Routine Consulting Provider: Stevenson Snow Consult Reason/Comments: cough, SOB Do you want consulting provider notified?: Yes Primary care physician: [facility] Course: Ms. Abraham is a 59-year-old female with a past medical history of osteoarthritis, macular degeneration, legally blind in the left eye, cervical fusion of 6 and 7, benign brain tumor in 2009 coming to the hospital stating that she was having increased heart rate and also that her blood pressure was high. Patient states that for the past 10 months she has been having issues with her breathing. She states that when she takes in a deep breath, she has to cough. She has nonproductive cough. Patient quit smoking 26 years back. She is being evaluated for this by her primary care physician and currently taking steroids. Patient states that she went to [facility] on Wednesday secondary to this cough, she had a chest x-ray and she was discharged home. But since then she has been having palpitations and a nonproductive cough. Patient mentions that she has been checking her blood pressure at home and that it was high and she also recorded her heart rate and was high so she came in for further evaluation. In the ER patient had an EKG showing sinus tachycardia, and a chest x-ray showing no acute process. Patient had blood work done showing white count of 16.2, hemoglobin 15.4, platelets 314. D-dimer 0.04. Electrolytes showing sodium 140, potassium 4.1, chloride 106, bicarbonate 23, BUN 16, creatinine 0.74. Troponin less than 0.0123. Free T4 1 0.24. UA negative for nitrites and esterase. Hospital course: Patient was evaluated with echocardiogram done showing ejection fraction of 50-55%. She was evaluated by cardiology and pulmonary. Cardiology advised her to check her blood pressure and keep a log of that he drinks post discharge. Pulmonary suggested the patient be started on bronchodilators in the form of albuterol, Symbicort, Singulair, Claritin and to be discharged on tapering dose of prednisone. The treatment plan was discussed in detail with the patient and she says that she is ready for discharge and would follow up with them in 2 weeks. Vital Signs - 8 hr 01/10/21 01/10/21 09:00 14:52 Temperature 97.8 F 98.0 F Pulse Rate [ 78 86 Pulse Oximetery ] Respiratory 16 16 Rate Blood Pressure 117/67 116/68 [Right Arm] O2 Sat by Pulse 97 98 Oximetry PHYSICAL EXAMINATION: GENERAL: The patient is alert and oriented X3, in any acute distress. Well developed, well nourished. HEENT: Pupils are round and equally reacting to light. EOMI. No scleral icterus. No conjunctival pallor. Normocephalic, atraumatic. No pharyngeal erythema. No thyromegaly. Right conjunctival hemorrhage( status post injection by ophthalmology done couple of days back ) CARDIOVASCULAR: S1 and S2 present. No murmurs, rubs, or gallops. PULMONARY: Chest is clear to auscultation, no wheezing or crackles. ABDOMEN: Soft, nontender. No organomegaly. Normal bowel sounds. MUSCULOSKELETAL: No joint swelling or deformity. EXTREMITIES: No cyanosis, clubbing, or pedal edema. NEUROLOGICAL: No focal neurological deficits on gross exam. SKIN: No rash DISCHARGE DIAGNOSIS Chronic cough Palpitations Leukocytosis- on steroids Macular degeneration Degenerative joint disease Cervical fusion of C6/C7 Benign brain tumor 2010 History of hysterectomy Former smoker FOLLOW-up: Patient is advised to follow up with her primary care physician in 2- 3 days. She is advised to follow up with pulmonary in 2 weeks. Also discussed with her in detail about this tapering dose of prednisone. Her medications have been sent to her pharmacy. (35 minutes spent with the discharge of the patient) Patient Condition at Discharge: Good Plan - Discharge Summary Discharge Rx Participant: No New Discharge Prescriptions: New Loratadine-Pseudoeph 5-120 mg [Claritin-D 12 Hour] 1 each PO Q12HR 7 Days #14 tab.er.12h predniSONE See Taper PO DAILY 18 Days #63 tab Montelukast [Singulair] 10 mg PO HS 30 Days #30 tab Budesonide/Formoterol Fumarate [Symbicort 80-4.5 Mcg Inhaler] 1 puff INHALATION BID 30 Days #1 inhaler Albuterol Inhaler [Ventolin Hfa Inhaler] 1 puff INHALATION RT-QID PRN 30 Days #1 inhaler PRN Reason: Shortness Of Breath Continue Fluticasone/Salmeterol [Advair 250-50 Diskus] 1 puff INHALATION RT-BID Albuterol Sulfate [Albuterol Sulfate Hfa] 2 puff PO Q6H PRN PRN Reason: Shortness Of Breath Discontinued predniSONE [Deltasone] See Taper PO DIRECTED Discharge Medication List Albuterol Sulfate [Albuterol Sulfate Hfa] 2 puff PO Q6H PRN 07/20/20 [History] Fluticasone/Salmeterol [Advair 250-50 Diskus] 1 puff INHALATION RT-BID 07/20/20 [History] Albuterol Inhaler [Ventolin Hfa Inhaler] 1 puff INHALATION RT-QID PRN 30 Days #1 inhaler 07/21/20 [Rx] Budesonide/Formoterol Fumarate [Symbicort 80-4.5 Mcg Inhaler] 1 puff INHALATION BID 30 Days #1 inhaler 07/21/20 [Rx] Loratadine-Pseudoeph 5-120 mg [Claritin-D 12 Hour] 1 each PO Q12HR 7 Days #14 tab.er.12h 07/21/20 [Rx] Montelukast [Singulair] 10 mg PO HS 30 Days #30 tab 07/21/20 [Rx] predniSONE See Taper PO DAILY 18 Days #63 tab 07/21/20 [Rx] Follow up Appointment(s)/Referral(s): Stevenson Snow MD [STAFF PHYSICIAN] - 1 Week Nasima Smalls MD [STAFF PHYSICIAN] - 2 Weeks Angélica Sanchez MD [Primary Care Provider] - 1-2 days Discharge Disposition: HOME SELF-CARE
== END 2020-07-21 16:23 | disposition home or self-care (01) ==
LOC: SUPCPDRO 23:02 → EC 23:02 → 1SOBS 07-20 01:55
PROVIDERS: ADMIT Hospitalist; ATTEND Hospitalist
DX: R05 Cough (principal); R00.2 Palpitations; R06.02 Shortness of breath; J45.909 Unspecified asthma, uncomplicated; Z91.14 Patient's other noncompliance with medication regimen; D72.829 Elevated white blood cell count, unspecified; H35.30 Unspecified macular degeneration; M19.90 Unspecified osteoarthritis, unspecified site; I47.1 Supraventricular tachycardia; I10 Essential (primary) hypertension; F41.9 Anxiety disorder, unspecified; R26.9 Unspecified abnormalities of gait and mobility; H83.90 Unspecified disease of inner ear, unspecified ear; H54.62 Unqualified visual loss, left eye, normal vision right eye; Z88.5 Allergy status to narcotic agent; Z79.891 Long term (current) use of opiate analgesic; Z98.890 Other specified postprocedural states; Z90.710 Acquired absence of both cervix and uterus; Z96.60 Presence of unspecified orthopedic joint implant; Z98.1 Arthrodesis status; Z86.018 Personal history of other benign neoplasm; Z91.89 Other specified personal risk factors, not elsewhere classified; Z87.891 Personal history of nicotine dependence; Z87.09 Personal history of other diseases of the respiratory system
CPT/HCPCS: 93005 ×2; 96361 ×2; 96374; 99285; 36415; 93306; 85379; 84439; 83880; 80061; 80053; 80048; 84443; 82550; 83605; 83735; 84100; 84484 ×2; 85025 ×2; 85610; 85730; 86140; 81003; 71046; G0378 ×2; J7512 ×2

== ENCOUNTER → 2020-08-16 | Outpatient (CLI) | payer BC ==
[2020-08-16 16:15] LABS: Total Eosinophil Count 90 #EOS/uL (150-300)
[2020-08-16 22:51] LABS: Basophils # (A) 0.04 X 10*3/uL (0.00-0.10); Basophils % (A) 0.4 %; HCT 47.4 % (37.2-46.3); HGB 15.8 g/dL (12.0-15.0); Lymphocytes # (A) 1.68 X 10*3/uL (0.90-5.00); MCH 30.3 pg (27.0-32.0); MCHC 33.3 g/dL (32.0-37.0); MCV 90.8 fL (80.0-97.0); Mean Platelet Volume 9.7 fL (9.5-12.2); Monocytes # (A) 0.61 X 10*3/uL (0.20-1.00); Monocytes % (A) 5.8 %; Neutrophils # (A) 8.03 X 10*3/uL (1.80-7.70); Neutrophils % (A) 76.5 %; Platelet Count 370 X 10*3/uL (140-440); RBC 5.22 X 10*6/uL (4.10-5.20); RDW 11.9 % (11.5-14.5); WBC 10.49 X 10*3/uL (4.50-10.00)
[2020-08-17 01:40] LABS: Cockroach IgE 0.28 kU/L
[2020-08-17 01:41] LABS: Dog Dander IgE <0.10 kU/L
[2020-08-17 01:42] LABS: Cat Epith & Dander IgE <0.10 kU/L; Dermato. farinae IgE 0.42 kU/L
[2020-08-17 01:43] LABS: Birch IgE <0.10 kU/L; Elm IgE <0.10 kU/L; Oak IgE <0.10 kU/L; Ragweed,Common IgE <0.10 kU/L
[2020-08-17 01:44] LABS: Alternaria alternata IgE <0.10 kU/L; Aspergillus fumagatus IgE <0.10 kU/L; Maple (Box Elder) IgE <0.10 kU/L
[2020-08-17 01:45] LABS: Cladosporian herbarum IgE <0.10 kU/L
== END | disposition home or self-care (01) ==
LOC: LABWHC1 14:45
PROVIDERS: ATTEND Internal Medicine
DX: J45.909 Unspecified asthma, uncomplicated (principal); R05 Cough
CPT/HCPCS: 36415; 82785; 85008; 85025; 86003

== ENCOUNTER → 2020-08-27 | Outpatient (CLI) | payer BC ==
[2020-08-27 22:34] LABS: African American GFR (CKD) 72.4 (60.0-200.0); Albumin 5.2 g/dL (3.80-4.90); Albumin/Globulin Ratio 2.6 (1.60-3.17); Anion Gap 11.2 mmol/L (4.00-12.00); Carbon Dioxide 30.8 mmol/L (21.6-31.8); Non-African American GFR(CKD) 62.5 (60.0-200.0); Potassium 4.1 mmol/L (3.5-5.5); Total Bilirubin 0.9 mg/dL (0.2-1.2); Total Protein 7.2 g/dL (6.2-8.2)
== END | disposition home or self-care (01) ==
LOC: LABWHC1 15:09
PROVIDERS: ATTEND Internal Medicine Interventional Cardiology
DX: I10 Essential (primary) hypertension (principal)
CPT/HCPCS: 36415; 80053

== ENCOUNTER → 2024-07-07 | Outpatient (CLI) | payer BC ==
--- NOTE | 2024-07-07 13:05 | MR ---
EXAMINATION TYPE: MR shoulder RT wo con DATE OF EXAM: 07/07/2024 12:02 PM COMPARISON: Outside radiograph 03/28/2024 CLINICAL INDICATION: Female, 63 years old with history of M25.511 PAIN IN RIGHT SHOULDER, Rt shoulder pain TECHNIQUE: Multiplanar, multisequence imaging of the right shoulder is performed without contrast. FINDINGS: There is interstitial signal within the intracapsular portion of the long head biceps tendon. The ext racapsular portion remains appropriately situated along the bicipital groove. Tiny 2 mm intrasubstance tear of the middle third fibers of the subscapularis tendon. The majority of the subscapularis tendon remains intact. The AC joint is intact. Trace fluid within the subacromial/subdeltoid bursa. There may be minimal bursal sided fraying at the junction of the supraspinatus and infraspinatus tend ons. Additional articular sided fraying or shallow tear measuring 7 x 7 mm involving the posterior gonzalez praspinatus tendon fibers, coronal image 12 and sagittal image 23. No high-grade partial or full-thickness rotator cuff tear is seen. Some reactive cystic change commissioner of officials ior greater tuberosity. No rotator cuff muscle atrophy. There is intrinsic signal within the superior labrum located behind the biceps anchor, coronal image 13. No paralabral cyst. Glenohumeral joint otherwise intact without significant joint effusion. No Hill-Sachs deformity os acromiale. Patchy red marrow hyperplasia which can be seen in setting of a nemia, obesity, smoking, chronic disease. IMPRESSION: 1. Mild diffuse rotator cuff tendinosis. (1) There is some articular sided fraying versus shallow art icular sided tear measuring 7 x 7 mm involving the posterior supraspinatus tendon fibers. (2) Tiny 3 mm intrasubstance tear of the middle third subscapularis tendon insertion. No high-grade partial or f ull-thickness rotator cuff tear or muscle atrophy. 2. There may be a tiny superior labral tear. 3. In addition, there is either tendinosis or an interstitial tear within the intracapsular portion o f the long head biceps tendon. [facility], , 07/07/2024 1:02 PM
== END | disposition home or self-care (01) ==
LOC: RADMRIMAIN 11:04
PROVIDERS: ATTEND Orthopaedic Surgery
DX: M67.813 Other specified disorders of tendon, right shoulder (principal)